=== PATIENT | female | born 1990 | race Caucasian/White ===

== ENCOUNTER 2024-10-07 13:02 | Outpatient (CLI) | payer OTHER ==
[2024-10-07 13:43] LABS: BASO % 0.8 % (0.1-1.2); EOS # 0.17 (0.04-0.54); EOS % 2.3 % (0.7-7.0); LYMPH # 2.98 (1.18-3.74); LYMPH % 40.0 % (19.3-53.1); MEAN PLATELET VOLUME 10.30 fl (9.4-12.4); MONO # 0.44 (0.24-0.82); MONO % 5.9 % (4.7-12.5); NEUT # 3.77 (1.56-6.13); NEUT % 50.6 % (34.0-71.1); RED CELL DISTRIBUTION WIDTH 12.8 % (11.6-14.4)
[2024-10-07 13:48] LABS: URINE APPEARANCE Clear; URINE BILIRRUBIN Negative (NEGATIVE); URINE BLOOD Negative; URINE COLOR Yellow; URINE GLUCOSE Negative (NEGATIVE); URINE KETONE Trace (NEGATIVE); URINE LEUKOCYTE Negative; URINE NITRATE Negative; URINE PROTEIN Negative (NEGATIVE); URINE UROBILINOGEN 1.0 E.U./dl
[2024-10-07 13:49] LABS: URINE BACTERIA 233.9 uL (0.0-1933); URINE EPITHELIAL CELLS 6.4 uL (0.0-38.8); URINE WBC 4.7 uL (0.0-23.2)
[2024-10-07 13:54] LABS: URINE CAST 0.00 uL (0.0-1.40); URINE RBC 1.9 uL (0.0-20.8)
[2024-10-07 14:12] LABS: ALT/SGPT 17.0 U/L (12-78); AST/SGOT 8.0 U/L (15-37); BILIRUBIN TOTAL 0.55 mg/dL (0.3-1.2); BUN CREA RATIO 18.0 (7.0-25.0); CREATININE SERUM 0.66 mg/dL (0.55-1.02); GFR 102.52; GLOBULINA 3.6 G/DL (2.4-3.5); GLUCOSE FASTING 78.0 mg/dL (65-100); OSMOLALITY SERUM 280.0 MOSM/KG (275-295)
[2024-10-07 14:22] LABS: CHOL HDL RATIO 2.6 (0-5.0); HDL 71.0 mg/dl (40-60); LDL 98.0 mg/dl (0-130); T4 FREE 1.01 NG/ML (0.76-1.46); TSH 1.74 uIU/mL (0.358-3.74); VLDL 16.0 (0-39)
== END 2024-10-07 13:11 | disposition home or self-care (01) ==
LOC: LAB 13:02
PROVIDERS: ATTEND Obstetrics & Gynecology
DX: E03.9 Hypothyroidism, unspecified (principal); I10 Essential (primary) hypertension; Z00.00 Encounter for general adult medical examination without abnormal findings; N39.0 Urinary tract infection, site not specified; Z11.4 Encounter for screening for human immunodeficiency virus [HIV]; Z12.11 Encounter for screening for malignant neoplasm of colon; Z21 Asymptomatic human immunodeficiency virus [HIV] infection status; R79.9 Abnormal finding of blood chemistry, unspecified; R79.89 Other specified abnormal findings of blood chemistry; E55.9 Vitamin D deficiency, unspecified

== ENCOUNTER 2024-10-07 13:26 | Outpatient (CLI) | payer OTHER | END 2024-10-07 13:31 | disposition home or self-care (01) | LOC: SONOGRAMA 13:26 | PROVIDERS: ATTEND Obstetrics & Gynecology | DX: N94.0 Mittelschmerz (principal); R10.2 Pelvic and perineal pain; N94.89 Other specified conditions associated with female genital organs and menstrual cycle ==

== ENCOUNTER 2024-12-08 06:00 | Day surgery (SDC) | payer OTHER ==
[2024-12-03 08:43] LABS: BASO % 0.8 % (0.1-1.2); EOS # 0.14 (0.04-0.54); EOS % 2.9 % (0.7-7.0); LYMPH # 2.06 (1.18-3.74); LYMPH % 42.0 % (19.3-53.1); MEAN PLATELET VOLUME 10.50 fl (9.4-12.4); MONO # 0.25 (0.24-0.82); MONO % 5.1 % (4.7-12.5); NEUT # 2.40 (1.56-6.13); NEUT % 48.8 % (34.0-71.1); RED CELL DISTRIBUTION WIDTH 12.4 % (11.6-14.4)
[2024-12-03 09:01] LABS: INR 1.02
[2024-12-03 09:20] VITALS: BP 103/70
[2024-12-03 09:22] LABS: ALT/SGPT 16.0 U/L (12-78); AST/SGOT 9.0 U/L (15-37); BILIRUBIN TOTAL 0.35 mg/dL (0.3-1.2); BUN CREA RATIO 17.0 (7.0-25.0); CREATININE SERUM 0.63 mg/dL (0.55-1.02); GFR 108.17; GLOBULINA 3.6 G/DL (2.4-3.5); GLUCOSE FASTING 81.0 mg/dL (65-100); OSMOLALITY SERUM 282.0 MOSM/KG (275-295)
[2024-12-03 09:28] LABS: URINE APPEARANCE Clear; URINE BILIRRUBIN Negative (NEGATIVE); URINE BLOOD Negative; URINE COLOR Yellow; URINE GLUCOSE Negative (NEGATIVE); URINE KETONE Negative (NEGATIVE); URINE LEUKOCYTE Negative; URINE NITRATE Negative; URINE PROTEIN Negative (NEGATIVE); URINE UROBILINOGEN 0.2 E.U./dl
[2024-12-03 09:33] LABS: URINE BACTERIA 117.5 uL (0.0-1933); URINE EPITHELIAL CELLS 5.6 uL (0.0-38.8)
[2024-12-03 09:54] LABS: URINE CAST 0.00 uL (0.0-1.40); URINE RBC 0.1 uL (0.0-20.8); URINE WBC 1.5 uL (0.0-23.2)
[~2024-12-08] VITALS: Ht 167.6 cm; Wt 72.6 kg
[2024-12-08] MEDS ORDERED: POVIDONE-IODINE 118 ML BOTT TOP ONE (07:03)
[2024-12-08] MEDS ORDERED: ONDANSETRON HCL 2 MG/ML VIAL IV ONE (08:30)
[2024-12-08] MEDS ORDERED: KETOROLAC TROMETHAMINE 30 MG VIAL IV ONE (08:30)
[2024-12-08] MEDS ORDERED: KETOROLAC TROMETHAMINE 30 MG VIAL ONE (10:56)
== END 2024-12-08 12:50 | disposition home or self-care (01) ==
LOC: CIR.AMB 06:00
PROVIDERS: ATTEND Obstetrics & Gynecology
DX: D06.9 Carcinoma in situ of cervix, unspecified (principal); N84.0 Polyp of corpus uteri; N93.8 Other specified abnormal uterine and vaginal bleeding